=== PATIENT | male | born 1935 | race Caucasian/White ===

== ENCOUNTER 2017-03-06 11:12 | Emergency (ER) | payer MEDICARE ==
[~2017-03-06] VITALS: Ht 175.3 cm; Wt 90.5 kg
[2017-03-06 11:14] VITALS: BP 124/69; PULSE 97; RESP 16; TEMP 98.5; O2SAT 97
--- NOTE | 2017-03-06 11:40 | PD ---
HPI . Left foot pain Chief Complaint: Injury Time Seen by Provider: 11:25 Travel History International Travel<30 days: No Contact w/Intl Traveler<30days: No Traveled to known affect area: No History of Present Illness HPI Patient presents with atraumatic left foot pain. Onset was 4 days ago. He has been treating it with BenGay, Tylenol, warm soaks, Advil but is getting worse rather than better. He states that he had a subjective fever yesterday. He denies any previous similar episode. The pain is moderate. He reports no exacerbating or relieving factors. PFSH Past Medical History Hx Anticoagulant Therapy: Yes Past Surgical History Other Surgery: Yes (HERNIA X2, PROSTATE SX, ) Social History Alcohol Use: Yes (DAILY) Tobacco Use: No Substance Use: No Allergies-Medications (Allergen,Severity, Reaction): Coded Allergies: No Known Allergies (Unverified , 03/06/17) Review of Systems Except as stated in HPI: all other systems reviewed are Neg General / Constitutional: Positive: Fever Musculoskeletal: Positive: Edema Skin: Positive Change in Pigmentation Physical Exam Narrative GENERAL: Awake and alert and in no acute distress. SKIN: Warm and dry. The skin of the left foot is a little red and warm to touch. There is some swelling. The maximal swelling and erythema is over the head of the fifth metatarsal. CARDIOVASCULAR: Regular rate and rhythm. RESPIRATORY: No accessory muscle use. MUSCULOSKELETAL: No obvious deformities. No edema. Tenderness to palpation over the left fifth metatarsal. NEUROLOGICAL: Awake and alert. No obvious cranial nerve deficits. Motor grossly within normal limits. Normal speech. PSYCHIATRIC: Appropriate mood and affect; insight and judgment normal. Data Data Last Documented VS Vital Signs Date Time Temp Pulse Resp B/P Pulse Ox O2 Delivery O2 Flow Rate FiO2 03/06/17 11:14 98.5 97 16 124/69 97 Orders Complete Blood Count With Diff (03/06/17 11:30) Blood Culture (03/06/17 11:30) W[place]gren Sedimentation Rate (03/06/17 11:30) C-Reactive Protein (Crp) (03/06/17 11:30) Uric Acid (03/06/17 11:30) Basic Metabolic Panel (Bmp) (03/06/17 11:30) Foot, Complete (Rad7srr) (03/06/17 11:31) Ed Poc Ultrasound (03/06/17 11:31) Acetamin-Hydrocod 325-5 Mg ([place] 5-325 (03/06/17 12:45) Prednisone (Deltasone) (03/06/17 12:45) Labs Laboratory Tests Test 03/06/17 11:35 White Blood Count 10.5 TH/MM3 Red Blood Count 3.91 MIL/MM3 Hemoglobin 13.2 GM/DL Hematocrit 37.6 % Mean Corpuscular Volume 96.2 FL Mean Corpuscular Hemoglobin 33.8 PG Mean Corpuscular Hemoglobin 35.1 % Concent Red Cell Distribution Width 12.3 % Platelet Count 296 TH/MM3 Mean Platelet Volume 7.1 FL Neutrophils (%) (Auto) 77.7 % Lymphocytes (%) (Auto) 12.3 % Monocytes (%) (Auto) 9.1 % Eosinophils (%) (Auto) 0.3 % Basophils (%) (Auto) 0.6 % Neutrophils # (Auto) 8.2 TH/MM3 Lymphocytes # (Auto) 1.3 TH/MM3 Monocytes # (Auto) 1.0 TH/MM3 Eosinophils # (Auto) 0.0 TH/MM3 Basophils # (Auto) 0.1 TH/MM3 CBC Comment DIFF FINAL Differential Comment Erythrocyte Sedimentation Rate 67 mm/hr Sodium Level 138 MEQ/L Potassium Level 4.1 MEQ/L Chloride Level 105 MEQ/L Carbon Dioxide Level 23.1 MEQ/L Anion Gap 10 MEQ/L Blood Urea Nitrogen 22 MG/DL Creatinine 1.59 MG/DL Estimat Glomerular Filtration 42 ML/MIN Rate Random Glucose 104 MG/DL Uric Acid 7.1 MG/DL Calcium Level 9.5 MG/DL C-Reactive Protein 22.30 MG/DL [facility] Medical Decision Making Medical Screen Exam Complete: Yes Emergency Medical Condition: Yes Differential Diagnosis Differential diagnosis includes but is not limited to cellulitis, gout, DVT Narrative Course Patient presents for the evaluation of a red, hot, swollen, tender left foot. Well's criteria for DVT is 0. CBC & BMP Diagram 03/06/17 11:35 Sedimentation rate is 67. C-reactive protein is 22.3. Uric acid is negative. Last Impressions Foot X-Ray 03/06/17 1131 Signed Impressions: Service Date/Time: Monday, March 06, 2017 12:03 - CONCLUSION: No acute disease. Almaz Wen MD I will treat him for both an inflammatory process and cellulitis. Procedures Procedure Narrative Venous ultrasound The patient's left was scanned from the groin to the popliteal fossa. The veins were 100% compressible. No foreign material was seen in the veins. Diagnosis Primary Impression: Foot swelling Patient Instructions: Arthritis (ED), Cellulitis (DC), General Instructions Med/Other Pt SpecificInfo: Prescription(s) given Scripts Cephalexin (Keflex)500 Mg Fbl832 Mg PO Q8H #30 CAP Ref 0 Prov:Nadia Reynoso MD 03/06/17 Prednisone 20 Mg Tab60 Mg PO DAILY 5 Days Ref 0 40 MG twice a day x 3 days, then 20 MG daily x 3 days, then 10 MG daily x 3 days Prov:Nadia Reynoso MD 03/06/17 Hydrocodone-Acetaminophen ([place])5-325 mg Tab1 Tab PO Q4H PRN (PAIN) #12 TAB Ref 0 Prov:Nadia Reynoso MD 03/06/17 Disposition: 01 DISCHARGE HOME Condition: Stable Nadia Reynoso MD Mar 06, 2017 11:40
[2017-03-06 12:02] LABS: AUTOMATED NEUTROPHIL # 8.2 TH/MM3 (1.8-7.7); BASOPHIL # 0.1 TH/MM3 (0-0.2); BASOPHIL % 0.6 % (0.0-2.0); EOSINOPHIL % 0.3 % (0.0-4.0); HEMATOCRIT 37.6 % (39.0-51.0); HEMO FLAGS DIFF FINAL; LYMPH % 12.3 % (9.0-44.0); LYMPHOCYTE # 1.3 TH/MM3 (1.0-4.8); MEAN CELL VOLUME 96.2 FL (80.0-100.0); MEAN CORPUSCULAR HEMOGLOBIN 33.8 PG (27.0-34.0); MEAN CORPUSCULAR HGB CONC 35.1 % (32.0-36.0); MONO % 9.1 % (0.0-8.0); NEUT % 77.7 % (16.0-70.0); PLATELET COUNT 296 TH/MM3 (150-450); RED BLOOD COUNT 3.91 MIL/MM3 (4.50-5.90); RED CELL DISTRIBUTION WIDTH 12.3 % (11.6-17.2); WHITE BLOOD COUNT 10.5 TH/MM3 (4.0-11.0)
--- NOTE | 2017-03-06 12:28 | RADRPT ---
EXAM DATE/TIME: 03/06/2017 12:03 [place] COMPARISON: No previous studies available for comparison. INDICATIONS : Pain and swelling left foot, denies injury MEDICAL HISTORY : None. SURGICAL HISTORY : None. ENCOUNTER: Initial ACUITY: 2 days PAIN SCORE: 8/10 LOCATION: Left Foot FINDINGS: Three view examination of the left foot demonstrates no soft tissue swelling, dislocation, or fractur e. The tarsal bones appear intact. The interphalangeal and metatarsophalangeal joints are intact. The calcaneus is intact. Bony mineralization is normal. CONCLUSION: No acute disease. Almaz Wen MD on March 06, 2017 at 12:26 Board Certified Radiologist. This report was verified electronically.
[2017-03-06 12:36] LABS: BICARBONATE 23.1 MEQ/L (21.0-32.0); POTASSIUM 4.1 MEQ/L (3.5-5.1); URIC ACID 7.1 MG/DL (2.6-7.2)
[2017-03-06] MEDS: predniSONE 20 MG TAB PO ONE (13:05)
[2017-03-06] MEDS: ACETAMINOPHEN/HYDROcodone 325 MG/5 MG TAB PO ONE (13:05)
[2017-03-06] MEDS ORDERED: PRED20 PO (13:09)
[2017-03-06] MEDS ORDERED: CEPH-460 PO (13:09)
[2017-03-06] MEDS ORDERED: NORC5TAB PO (13:09)
[2017-03-06 13:39] VITALS: BP 116/62; PULSE 90; RESP 16; O2SAT 96
== END 2017-03-06 14:02 | disposition home or self-care (01) ==
LOC: NEPD 11:12
DX: M79.672 Pain in left foot (principal); M79.89 Other specified soft tissue disorders; R50.9 Fever, unspecified
CPT/HCPCS: 73630; 80048; 84550; 85025; 85652; 86140; 87040; 99283; J7512